=== PATIENT | female | born 1975 | race African-American/Black ===

== ENCOUNTER 2020-04-10 09:12 | Inpatient (IN) | payer MEDICAID ==
[~2020-04-10] VITALS: Ht 160 cm; Wt 84.8 kg
[~2020-04-10 09:12] MED LIST: ARIP30TA2 PO; DIVA500T3 PO; FOLI-43 PO; LORA-250 PO; MULT-1146 PO
[2020-04-10] MEDS ORDERED: ONDANSETRON HCL 4MG/2ML INJ IV ONE (10:00)
[2020-04-10 10:09] LABS: BASOPHILS % 1.1 % (0.0-2.0); EOSINOPHILS % 0.3 % (0.0-5.0); HEMATOCRIT. 43.8 % (36.0-48.0); HEMOGLOBIN. 14.5 g/dL (12.0-16.0); LYMPHOCYTES % 15.8 % (20.0-50.0); MEAN CORPUSCULAR VOLUME 105.7 fL (81.0-99.0); MEAN PLATELET VOLUME 8.8 fl (7.4-10.4); MONOCYTES % 5.1 % (2.0-8.0); NEUTROPHILS % 77.7 % (40.0-76.0); PLATELET 198 x1000/uL (130-400); RED BLOOD CELL COUNT 4.14 mill/uL (4.2-5.4); RED CELL DISTRIBUTION WIDTH 14.1 % (11.6-14.6)
[2020-04-10 10:14] LABS: CLARITY URINE CLEAR (CLEAR); COLOR URINE DARK YELLOW (YELLOW); KETONES URINE 2+ (NEGATIVE); LEUKOCYTE ESTERASE URINE 1+ (NEGATIVE); NITRITE URINE NEGATIVE (NEGATIVE); OCCULT BLOOD URINE 2+ (NEGATIVE); PH URINE 8.5 (4.5-8.0); PROTEIN URINE 1+ (NEGATIVE)
[2020-04-10 10:15] LABS: CHLORIDE 108 mEq/L (98-107)
[2020-04-10 10:16] LABS: INR 1.1; PARTIAL THROMBOPLASTIN TIME 27.9 sec (23.4-31.0); PROTHROMBIN TIME 11.8 sec (9.6-11.0)
[2020-04-10] MEDS ORDERED: ONDANSETRON HCL 4MG/2ML INJ IV STA (10:40)
[2020-04-10] MEDS ORDERED: MORPHINE SULFATE 4 MG/ML CPJ (NOT FOR IM USE) IV STA (10:40)
[2020-04-10] MEDS ORDERED: CLONIDINE 0.1MG TABLET PO PRN (11:45)
[2020-04-10] MEDS ORDERED: DIPHENHYDRAMINE 50MG/ML VIAL IV PRN (11:45)
[2020-04-10] MEDS ORDERED: ONDANSETRON HCL 4MG/2ML INJ IV PRN (11:45)
[2020-04-10] MEDS ORDERED: ACETAMINOPHEN 325MG TABLET PO PRN (11:45)
[2020-04-10] MEDS ORDERED: CEFTRIAXONE 1 G PREMIX 50 ML IV SCH (12:00)
[2020-04-10] MEDS ORDERED: AZITHROMYCIN 500 MG in DEXT 5% WATER 250 ML IV SCH (12:00)
[2020-04-10] MEDS ORDERED: IOHEXOL-350 100 ML BOTTLE ONE (12:12)
[2020-04-10 12:13] LABS: C REACTIVE PROTEIN CARDIAC 7.7 mg/L (0.00-3.00)
[2020-04-10 12:14] LABS: PHOSPHORUS 2.1 mg/dL (2.5-4.9)
[2020-04-10] MEDS: MORPHINE SULFATE 2 MG/ML CPJ (NOT FOR IM USE) IV PRN (15:18)
[2020-04-10 16:20] LABS: *AMPHETAMINES SCREEN URINE NEGATIVE (NEGATIVE); *BARBITURATES SCREEN URINE NEGATIVE (NEGATIVE); *BENZODIAZEPINES SCREEN URINE NEGATIVE (NEGATIVE); *COCAINE SCREEN URINE NEGATIVE (NEGATIVE); CANNABINOID URINE SCREEN NEGATIVE (NEGATIVE); METHADONE URINE SCREEN NEGATIVE (NEGATIVE)
[2020-04-10 16:21] LABS: OPIATES URINE SCREEN PRESUMTIVE POSITIVE (NEGATIVE); PHENCYCLIDINE URINE SCREEN NEGATIVE (NEGATIVE)
[2020-04-10] MEDS ORDERED: PREDNISONE 20MG TABLET PO SCH (16:30)
[2020-04-10] MEDS ORDERED: IPRATROPIUM/ALBUTEROL 0.5-3(2.5)MG/3ML NEB HHN PRN (16:30)
[2020-04-10] MEDS: LORAZEPAM 1MG TABLET PO SCH (17:33)
[2020-04-10] MEDS: ARIPIPRAZOLE 5MG TABLET PO SCH (17:34)
[2020-04-10] MEDS: DIVALPROEX SODIUM 500MG ER TABLET PO SCH (17:34)
[2020-04-10] MEDS: PANTOPRAZOLE SODIUM 40 MG/VIAL IV SCH (17:34)
[2020-04-10] MEDS: NICOTINE 21MG PATCH TD SCH (18:00)
[2020-04-10 21:00] VITALS: BP 124/85
[2020-04-10] MEDS ORDERED: LEVOFLOXACIN 500MG TABLET PO NR (22:00)
[2020-04-10 22:55] VITALS: BP 124/85
[2020-04-11 04:00] VITALS: BP 132/94
[2020-04-11 08:00] VITALS: BP 115/76
[2020-04-11] MEDS: PANTOPRAZOLE SODIUM 40 MG/VIAL IV SCH ×2 (08:43→16:14)
[2020-04-11] MEDS: FOLIC ACID 1MG TABLET PO SCH (08:44)
[2020-04-11] MEDS: MULTIVITAMINS,THER W-MINERALS TABLET PO SCH (08:44)
[2020-04-11] MEDS: NICOTINE 21MG PATCH TD SCH (08:44)
[2020-04-11] MEDS: LORAZEPAM 1MG TABLET PO SCH (08:44)
[2020-04-11] MEDS: DIVALPROEX SODIUM 500MG ER TABLET PO SCH ×2 (08:44→16:13)
[2020-04-11] MEDS: ARIPIPRAZOLE 5MG TABLET PO SCH (08:45)
[2020-04-11 10:39] LABS: BASOPHILS % 0.9 % (0.0-2.0); EOSINOPHILS % 1.6 % (0.0-5.0); HEMATOCRIT. 39.1 % (36.0-48.0); LYMPHOCYTES % 14.7 % (20.0-50.0); MEAN CORPUSCULAR HEMOGLOBIN 35.3 pg (28.0-32.0); MEAN CORPUSCULAR VOLUME 105.9 fL (81.0-99.0); MEAN PLATELET VOLUME 8.9 fl (7.4-10.4); MONOCYTES % 9.7 % (2.0-8.0); NEUTROPHILS % 73.1 % (40.0-76.0); PLATELET 162 x1000/uL (130-400); RED BLOOD CELL COUNT 3.69 mill/uL (4.2-5.4); RED CELL DISTRIBUTION WIDTH 14.4 % (11.6-14.6)
[2020-04-11 10:49] LABS: CHLORIDE 108 mEq/L (98-107)
[2020-04-11] MEDS ORDERED: LEVOFLOXACIN 250MG TABLET PO SCH (11:00)
[2020-04-11 11:09] LABS: LDL CHOLESTEROL 65 mg/dL (5-100)
[2020-04-11 11:13] LABS: HDL CHOLESTEROL 44 mg/dL (40-59)
[2020-04-11] MEDS: LEVOFLOXACIN 500MG TABLET PO SCH (11:36)
[2020-04-11 12:00] VITALS: BP 129/80
[2020-04-11] MEDS: MORPHINE SULFATE 2 MG/ML CPJ (NOT FOR IM USE) IV PRN ×2 (13:18→21:00)
[2020-04-11 16:00] VITALS: BP 112/80
[2020-04-11 20:00] VITALS: BP 128/85
[2020-04-11 21:45] VITALS: BP 141/96
[2020-04-12] MEDS: IPRATROPIUM/ALBUTEROL 0.5-3(2.5)MG/3ML NEB HHN SCH ×4 (01:12→20:10)
[2020-04-12 08:00] VITALS: BP 111/72
[2020-04-12 08:11] VITALS: BP 111/72
[2020-04-12 08:55] LABS: BASOPHILS % 0.9 % (0.0-2.0); HEMATOCRIT. 42.2 % (36.0-48.0); HEMOGLOBIN. 13.9 g/dL (12.0-16.0); LYMPHOCYTES % 25.9 % (20.0-50.0); MEAN CORPUSCULAR HEMOGLOBIN 35.1 pg (28.0-32.0); MEAN CORPUSCULAR VOLUME 106.8 fL (81.0-99.0); NEUTROPHILS % 64.2 % (40.0-76.0); PLATELET 155 x1000/uL (130-400); RED BLOOD CELL COUNT 3.95 mill/uL (4.2-5.4); RED CELL DISTRIBUTION WIDTH 14.5 % (11.6-14.6)
[2020-04-12 09:02] LABS: CHLORIDE 107 mEq/L (98-107)
[2020-04-12] MEDS: LORAZEPAM 1MG TABLET PO SCH (09:20)
[2020-04-12] MEDS: PANTOPRAZOLE SODIUM 40 MG/VIAL IV SCH ×2 (09:20→17:54)
[2020-04-12] MEDS: ARIPIPRAZOLE 5MG TABLET PO SCH (09:21)
[2020-04-12] MEDS: LEVOFLOXACIN 500MG TABLET PO SCH (09:21)
[2020-04-12] MEDS: DIVALPROEX SODIUM 500MG ER TABLET PO SCH ×2 (09:21→17:54)
[2020-04-12] MEDS: FOLIC ACID 1MG TABLET PO SCH (09:21)
[2020-04-12] MEDS: MULTIVITAMINS,THER W-MINERALS TABLET PO SCH (09:21)
[2020-04-12] MEDS: MORPHINE SULFATE 2 MG/ML CPJ (NOT FOR IM USE) IV PRN ×2 (09:34→20:01)
[2020-04-12] MEDS: BUDESONIDE 0.5MG/2ML NEB HHN SCH ×2 (09:53→20:10)
[2020-04-12 11:47] VITALS: BP 106/66
[2020-04-12 12:00] VITALS: BP 106/66
[2020-04-12] MEDS: GUAIFENESIN 200MG/10ML SUGAR FREE UDC PO PRN (13:53)
[2020-04-12] MEDS: NICOTINE 21MG PATCH TD SCH (17:54)
[2020-04-12 20:00] VITALS: BP 126/86
[2020-04-12] MEDS ORDERED: CEFTRIAXONE 1 G PREMIX 50 ML IV SCH (21:30)
[2020-04-12] MEDS: METRONIDAZOLE 500 MG PREMIX 100 ML IV SCH (23:11)
[2020-04-13] VITALS: BP 106/67
[2020-04-13] MEDS: DOXYCYCLINE 100 MG in DEXT 5% WATER 100 ML IV SCH ×3 (01:08→21:30)
[2020-04-13] MEDS: IPRATROPIUM/ALBUTEROL 0.5-3(2.5)MG/3ML NEB HHN SCH ×4 (01:12→21:25)
[2020-04-13] MEDS: CEFTRIAXONE 1,000 MG in DEXTROSE 5% WATER 50 ML IV SCH (01:13)
[2020-04-13] MEDS: METRONIDAZOLE 500 MG PREMIX 100 ML IV SCH ×3 (03:32→19:43)
[2020-04-13] MEDS: BUDESONIDE 0.5MG/2ML NEB HHN SCH ×2 (07:58→21:25)
[2020-04-13 08:00] VITALS: BP 140/86
[2020-04-13] MEDS: FOLIC ACID 1MG TABLET PO SCH (09:00)
[2020-04-13] MEDS: LORAZEPAM 1MG TABLET PO SCH ×2 (09:00→09:20)
[2020-04-13] MEDS: MULTIVITAMINS,THER W-MINERALS TABLET PO SCH (09:00)
[2020-04-13] MEDS: DIVALPROEX SODIUM 500MG ER TABLET PO SCH ×2 (09:01→17:32)
[2020-04-13] MEDS: PANTOPRAZOLE SODIUM 40 MG/VIAL IV SCH ×2 (09:01→17:32)
[2020-04-13] MEDS: ARIPIPRAZOLE 5MG TABLET PO SCH (09:02)
[2020-04-13] MEDS: NICOTINE 21MG PATCH TD SCH (09:02)
[2020-04-13 11:52] VITALS: BP 107/56
[2020-04-13] MEDS: MORPHINE SULFATE 2 MG/ML CPJ (NOT FOR IM USE) IV PRN ×2 (14:09→19:44)
[2020-04-13 14:52] LABS: BG BASE EXCESS -1.7 mmol/L (-2.0-2.0); BG CARBOXYHEMOGLOBIN 0.4 % (0.5-1.5); BG DEOXYHEMOGLOBIN 9.4 % (0.0-5.0); BG FRACTION INSPIRED OXYGEN 21; BG HCO3 ACT 20.9 mmol/L (22.0-26.0); BG METHEMOGLOBIN 0.2 % (0.0-1.5); BG OXYGEN SATURATION 90.5 % (92.0-98.5); BG PCO2 29.6 mmHg (35.0-45.0); BG PH 7.466 (7.350-7.450); BG PO2 59.5 mmHg (75.0-100.0); BG VENT MODE ROOM AIR
[2020-04-13] MEDS: SILDENAFIL CITRATE 20MG TABLET PO SCH ×3 (17:33→21:43)
[2020-04-13] MEDS: GUAIFENESIN 200MG/10ML SUGAR FREE UDC PO PRN (18:50)
[2020-04-14 00:08] VITALS: BP 125/84
[2020-04-14] MEDS: CEFTRIAXONE 1,000 MG in DEXTROSE 5% WATER 50 ML IV SCH (01:17)
[2020-04-14] MEDS: METRONIDAZOLE 500 MG PREMIX 100 ML IV SCH ×4 (03:30→20:30)
[2020-04-14] MEDS: MORPHINE SULFATE 2 MG/ML CPJ (NOT FOR IM USE) IV PRN ×2 (03:35→11:50)
[2020-04-14] MEDS: SILDENAFIL CITRATE 20MG TABLET PO SCH ×4 (05:48→21:58)
[2020-04-14 08:00] VITALS: BP 130/88
[2020-04-14] MEDS: MULTIVITAMINS,THER W-MINERALS TABLET PO SCH (08:33)
[2020-04-14] MEDS: ARIPIPRAZOLE 5MG TABLET PO SCH (08:33)
[2020-04-14] MEDS: NICOTINE 21MG PATCH TD SCH (08:33)
[2020-04-14] MEDS: LORAZEPAM 1MG TABLET PO SCH (08:33)
[2020-04-14 08:34] LABS: CHLORIDE 106 mEq/L (98-107)
[2020-04-14] MEDS: DIVALPROEX SODIUM 500MG ER TABLET PO SCH ×2 (08:34→17:38)
[2020-04-14] MEDS: PANTOPRAZOLE SODIUM 40 MG/VIAL IV SCH ×2 (08:34→17:38)
[2020-04-14] MEDS: FOLIC ACID 1MG TABLET PO SCH (08:34)
[2020-04-14 08:38] LABS: EOSINOPHILS % 2.7 % (0.0-5.0); HEMATOCRIT. 40.1 % (36.0-48.0); HEMOGLOBIN. 13.4 g/dL (12.0-16.0); LYMPHOCYTES % 30.1 % (20.0-50.0); MEAN CORPUSCULAR HEMOGLOBIN 35.4 pg (28.0-32.0); MEAN CORPUSCULAR VOLUME 105.8 fL (81.0-99.0); MONOCYTES % 10.5 % (2.0-8.0); NEUTROPHILS % 55.7 % (40.0-76.0); PLATELET 162 x1000/uL (130-400); RED BLOOD CELL COUNT 3.79 mill/uL (4.2-5.4); RED CELL DISTRIBUTION WIDTH 14.5 % (11.6-14.6)
[2020-04-14] MEDS: BUDESONIDE 0.5MG/2ML NEB HHN SCH ×2 (08:51→21:00)
[2020-04-14] MEDS: IPRATROPIUM/ALBUTEROL 0.5-3(2.5)MG/3ML NEB HHN SCH ×4 (08:51→20:00)
[2020-04-14] MEDS: DOXYCYCLINE 100 MG in DEXT 5% WATER 100 ML IV SCH ×3 (11:18→22:30)
[2020-04-14 11:54] VITALS: BP 122/85
[2020-04-14 16:00] VITALS: BP 111/76
[2020-04-15] MEDS: IPRATROPIUM/ALBUTEROL 0.5-3(2.5)MG/3ML NEB HHN SCH
[2020-04-15] MEDS: CEFTRIAXONE 1,000 MG in DEXTROSE 5% WATER 50 ML IV SCH (01:00)
[2020-04-15] MEDS: SILDENAFIL CITRATE 20MG TABLET PO SCH (06:00)
[2020-04-15] MEDS: METRONIDAZOLE 500 MG PREMIX 100 ML IV SCH (06:15)
[2020-04-15 08:00] VITALS: BP 121/76
[2020-04-15 08:16] LABS: HEMATOCRIT. 41.8 % (36.0-48.0); HEMOGLOBIN. 13.7 g/dL (12.0-16.0); MEAN CORPUSCULAR VOLUME 106.3 fL (81.0-99.0); RED BLOOD CELL COUNT 3.93 mill/uL (4.2-5.4); RED CELL DISTRIBUTION WIDTH 14.1 % (11.6-14.6)
[2020-04-15 08:25] LABS: CHLORIDE 107 mEq/L (98-107)
[2020-04-15 13:09] LABS: PLATELET ESTIMATE NORMAL
== END 2020-04-15 08:30 | disposition left against medical advice (07) | DRG 140 ==
LOC: ER 10:42 → 7WST 11:33 → EDBEDREQTM 11:47 → EDBEDREQ 11:47 → ENRESERV 19:24 → 8WST 04-11 21:45
PROVIDERS: ADMIT Internal Medicine; ATTEND Internal Medicine
DX: J44.1 Chronic obstructive pulmonary disease with (acute) exacerbation (principal); J96.00 Acute respiratory failure, unspecified whether with hypoxia or hypercapnia; J18.9 Pneumonia, unspecified organism; G40.909 Epilepsy, unspecified, not intractable, without status epilepticus; J44.0 Chronic obstructive pulmonary disease with (acute) lower respiratory infection; I11.9 Hypertensive heart disease without heart failure; F31.9 Bipolar disorder, unspecified; Z79.01 Long term (current) use of anticoagulants; N39.0 Urinary tract infection, site not specified; Z86.718 Personal history of other venous thrombosis and embolism; Z86.711 Personal history of pulmonary embolism; Z95.828 Presence of other vascular implants and grafts; K29.01 Acute gastritis with bleeding; F10.10 Alcohol abuse, uncomplicated; I27.21 Secondary pulmonary arterial hypertension; J96.90 Respiratory failure, unspecified, unspecified whether with hypoxia or hypercapnia; R82.4 Acetonuria
CPT/HCPCS: 36415; 36600; 71045; 71275; 74176; 76700; 76856; 80048; 80053; 80061; 80305; 80320; 81003; 82375; 82728; 82805; 83615; 83735; 83880; 84100; 84145; 84443; 84484; 85025; 85651; 86140; 86141; 86304; 93005; 93306; 96365; 99285; C9113; J0456; J0696; J1200; J2270; J2405; J3490; J7060; J7626; Q9967; G0480; U0003-CS